=== PATIENT | male | born 1965 | race Caucasian/White ===

== ENCOUNTER 2020-12-02 08:02 | Emergency (ER) | payer OTHER ==
[~2020-12-02] VITALS: Ht 175.3 cm; Wt 88.5 kg
--- NOTE | 2020-12-02 08:24 | NUR ---
Patient discharged to home in stable condition. Written and verbal after care instructions given. Patient verbalizes understanding of instructions. Stressed follow up or return to ER for worsening s/s.
[2020-12-02] MEDS ORDERED: predniSONE 20 MG TABLET PO ONE (08:30)
[2020-12-02] MEDS ORDERED: predniSONE 20 MG TABLET ONE (08:32)
== END 2020-12-02 08:34 | disposition home or self-care (01) ==
LOC: ER 08:02
DX: G51.0 Bell's palsy (principal); F17.290 Nicotine dependence, other tobacco product, uncomplicated
CPT/HCPCS: 99283; J7512; A4663